=== PATIENT | male | born 1980 | race Caucasian/White ===

== ENCOUNTER 2016-08-06 09:13 | Emergency (ER) | payer OTHER ==
[~2016-08-06] VITALS: Ht 182.9 cm; Wt 116.5 kg
[~2016-08-06 09:13] MED LIST: AMOXICILLIN500 MG PO; AMOXICILLIN875 MG PO; MOTRIN800 MG PO; NOHOMEMEDS; NORCO 5/3251 TABLET PO
[2016-08-06] MEDS ORDERED: CLEOCIN150 MG PO (11:05)
[2016-08-06 11:06] VITALS: BP 132/82
== END 2016-08-06 11:10 | disposition home or self-care (01) ==
LOC: EME 09:13
DX: K04.7 Periapical abscess without sinus (principal); K08.89 Other specified disorders of teeth and supporting structures; G89.29 Other chronic pain; F17.200 Nicotine dependence, unspecified, uncomplicated; Z71.6 Tobacco abuse counseling
CPT/HCPCS: 99281; 99283

== ENCOUNTER 2017-05-13 03:40 | Emergency (ER) | payer OTHER ==
[~2017-05-13] VITALS: Ht 182.9 cm; Wt 120.2 kg
[~2017-05-13 03:40] MED LIST changes: +CLEOCIN150 MG PO
[2017-05-13] MEDS ORDERED: AUGMENTIN875 MG PO (05:03)
[2017-05-13] MEDS ORDERED: NORCO 5/3251 TABLET PO (05:03)
[2017-05-13 05:12] VITALS: BP 146/92
== END 2017-05-13 05:12 | disposition home or self-care (01) ==
LOC: EXP 03:40 → EME 03:40 → EXP 05:12
PROC: 0C96XZZ Drainage of Lower Gingiva, External Approach (ICD-10-PCS; principal; 2017-05-13)
DX: K04.7 Periapical abscess without sinus (principal); F17.200 Nicotine dependence, unspecified, uncomplicated
CPT/HCPCS: 99281; 99284; S0020